=== PATIENT | female | born 1980 | race Caucasian/White ===

== ENCOUNTER 2016-06-24 19:06 | Inpatient (IN) | payer MEDICAID ==
[2016-06-24] MEDS ORDERED: IPRATROPIUM/ALBUTEROL 3 ML DEYVIAL ONE (19:25)
--- NOTE | 2016-06-24 19:36 | EDPHY ---
H & P Stated Complaint: exasperation asthma Source: Patient - Personal History LMP (Females 10-55): 22-28 Days Ago Current Tetanus/Diphtheria Vaccine: Yes Current Tetanus Diphtheria and Acellular Pertussis (TDAP): Yes - Medical/Surgical History Hx Asthma: Yes Hx Chronic Respiratory Disease: No Hx Diabetes: No Hx Cardiac Disease: No Hx Renal Disease: No Hx Cirrhosis: No Hx Alcoholism: No Hx HIV/AIDS: No Hx Splenectomy or Spleen Trauma: No Other PMH: asthma - Social History Smoking Status: Former smoker Time Seen by Provider: 06/24/16 19:21 HPI/ROS: CHIEF COMPLAINT: Cough fever HISTORY OF PRESENT ILLNESS: This is a 36-year-old female presenting to the emergency department complaining of fever for 4 days, productive cough shortness of breath x2 days. Patient reports taking Tylenol yesterday but none today, patient also complaining of nausea and decreased p.o. intake. Denies any chest pain REVIEW OF SYSTEMS: Constitutional: Fever chills, decreased p.o. intake Eyes: No discharge. ENT: sore throat. Cardiovascular: No chest pain, no palpitations. Respiratory: Productive cough, shortness of breath. Gastrointestinal: No abdominal pain. Nausea vomiting Genitourinary: No hematuria. Musculoskeletal: No back pain. Skin: No rashes. Neurological: No headache. (Ricarda Bassett) - Physical Exam Exam: General Appearance: Alert, no distress. Ill-appearing Eyes: Pupils equal and round no pallor or injection. ENT, Mouth: Mucous membranes dry Respiratory: There are no retractions. Rhonchi bilaterally, decreased breath sounds on the left side Cardiovascular: Regular rate and rhythm. Gastrointestinal: Abdomen is soft and nontender, no masses, bowel sounds normal. Neurological: No focal deficits Skin: Warm and dry, no rashes. Musculoskeletal: Neck is supple nontender. Extremities: symmetrical, full range of motion. Psychiatric: Patient is oriented X 3, anxious (Ricarda Bassett) Constitutional: Initial Vital Signs Temperature (C) 37.7 C 06/24/16 19:08 Heart Rate 108 H 06/24/16 19:08 Respiratory Rate 22 H 06/24/16 19:08 Blood Pressure 95/67 L 06/24/16 19:08 O2 Sat (%) 95 06/24/16 19:08 O2 Delivery Mode Room Air O2 (L/minute) 1 Allergies/Adverse Reactions: aspirin Allergy (Verified 06/24/16 19:11) NSAIDS (Non-Steroidal Anti-Inflamma Allergy (Verified 06/24/16 21:35) Home Medications: Medication Instructions Recorded Albuterol [Proventil Inhaler HFA 1 - 2 puffs IH Q4H PRN 06/24/16 (*)] Fexofenadine HCl [Felicia Allergy] 180 mg PO HS 06/24/16 Fluticasone Nasal [Flonase Nasal 2 sprays EACHNARE BID 06/24/16 [place] (RX)] Budesonide [Budesonide 0.5MG/2Ml 0.5 mg EACHNARE BID 06/25/16 Neb (*)] Fluticasone/Salmeterol [Advair Hfa 2 puffs IH HS 06/25/16 115-21 Mcg Inhaler] Medical Decision Making ED Course/Re-evaluation: Discussed ED plan of care: CBC, CMP, lactic acid, IV fluids, for dehydration Nori Bills, 2029: Discussed results with patient left lower lobe pneumonia. Hospital admit 2044: Spoke with Max Cintron MD accepted patient for admit. Discussed plan of care with patient (Ricarda Bassett) Differential Diagnosis: Other differential diagnosis considered not limited to pleural effusion, pneumothorax and asthma exacerbation (Ricarda Bassett) Other Provider: This patient was evaluated and managed by the nurse practitioner. I have reviewed the chart and agree with the findings and plan of care as documented. ( Manda Hagan) - Data Points Laboratory Results: Laboratory Results 06/25/16 04:12 06/25/16 04:12 Microbiology Results: MICROBIOLOGY 06/24/16 20:10 Nasal, Sinus - [place] Viral Transport Respiratory Panel ( PCR) - Final No Organism Detected Medications Given: Discontinued Medications Acetaminophen (Tylenol) 1,000 mg PO EDNOW ONE Stop: 06/24/16 19:46 Last Admin: 06/24/16 21:30 Dose: Not Given Albuterol/Ipratropium (Duoneb) 3 ml IH EDNOW ONE Stop: 06/24/16 19:50 Last Admin: 06/24/16 19:25 Dose: 3 ml Sodium Chloride (Ns) 1,000 mls @ 0 mls/hr IV ONCE ONE PRN Reason: Wide Open Stop: 06/24/16 19:49 Last Admin: 06/24/16 19:30 Dose: 1,000 mls Sodium Chloride (Ns) 500 mls @ 0 mls/hr IV ONCE ONE PRN Reason: As Directed Stop: 06/24/16 20:31 Last Admin: 06/24/16 20:00 Dose: 500 mls Levofloxacin/Dextrose (Levaquin 750 Mg (Premix)) 150 mls @ 100 mls/hr IV ONCE ONE PRN Reason: Protocol Stop: 06/24/16 22:12 Last Admin: 06/24/16 21:11 Dose: 150 mls Levofloxacin/Dextrose (Levaquin 750 Mg (Premix)) 150 mls @ 100 mls/hr IV DAILY EDWIN PRN Reason: Protocol Stop: 07/25/16 08:59 Last Admin: 06/25/16 08:24 Dose: 150 mls Sodium Chloride (Ns) 1,000 mls @ 100 mls/hr IV CONT EDWIN Stop: 12/21/16 21:14 Last Admin: 06/24/16 23:25 Dose: 1,000 mls Lorazepam (Ativan Injection) 0.5 mg IVP EDNOW ONE Stop: 06/24/16 20:31 Last Admin: 06/24/16 20:33 Dose: 0.5 mg Ondansetron HCl (Zofran) 4 mg IVP EDNOW ONE Stop: 06/24/16 19:46 Last Admin: 06/24/16 19:49 Dose: 4 mg Fluticasone/Salmeterol (Advair) 2 puffs IH HS EDWIN Stop: 12/21/16 22:59 Last Admin: 06/25/16 04:13 Dose: Not Given Departure - Departure Disposition: [facility] Acute Clinical Impression: Pneumonia Qualifiers: Pneumonia type: due to unspecified organism Laterality: left Lung location: lower lobe of lung Qualified Code(s): J18.1 - Lobar pneumonia, unspecified organism Condition: Fair
[2016-06-24] MEDS ORDERED: ONDANSETRON 4 MG/2 ML VIAL ONE (19:45)
[2016-06-24] MEDS ORDERED: ACETAMINOPHEN 500 MG TAB ONE (19:45)
[2016-06-24] MEDS ORDERED: ACETAMINOPHEN 500 MG TAB PO ONE (19:45)
[2016-06-24] MEDS ORDERED: ONDANSETRON 4 MG/2 ML VIAL IVP ONE (19:45)
[2016-06-24] MEDS ORDERED: NS 1,000 ML IV ONE (19:48)
[2016-06-24 19:49] LABS: % IMMATURE GRANULYOCYTES 0.3 % (0.0-1.1); ABSOLUTE IMMATURE GRANULOCYTES 0.03 10^3/uL (0.00-0.10); ADD DIFF? NO; ADD MORPH? NO; ADD SCAN? NO; ATYPICAL LYMPHOCYTE FLAG 30 (0-99); FRAGMENT RBC FLAG 0 (0-99); HEMATOCRIT 42.3 % (38.0-47.0); HEMOGLOBIN 14.6 g/dL (12.6-16.3); LEFT SHIFT FLG 0 (0-99); LIPEMIA HEMOLYSIS FLAG 90 (0-99); MEAN CELL HEMOGLOBIN 32.3 pg (27.9-34.1); MEAN CELL HEMOGLOBIN CONCENTR. 34.5 g/dL (32.4-36.7); MEAN CELL VOLUME 93.6 fL (81.5-99.8); MEAN PLATELET VOLUME 10.1 fL (8.7-11.7); PLATELET CLUMPS FLAG 0 (0-99); PLATELET COUNT 172 10^3/uL (150-400); RED BLOOD CELL COUNT 4.52 10^6/uL (4.18-5.33); RED CELL DISTRIBUTION WIDTH 11.7 % (11.5-15.2)
[2016-06-24] MEDS ORDERED: IPRATROPIUM/ALBUTEROL 3 ML DEYVIAL IH ONE (19:49)
[2016-06-24 20:05] LABS: ANION GAP 12 mEq/L (8-16); BILIRUBIN,TOTAL 1.1 mg/dL (0.1-1.4); CALCIUM 9.6 mg/dL (8.5-10.4); CARBON DIOXIDE 23 mEq/l (22-31); CHLORIDE 105 mEq/L (97-110); CREATININE 0.6 mg/dL (0.6-1.0); GLOMERULAR FILTRATION RATE > 60; GLUCOSE 115 mg/dL (70-100); POTASSIUM 3.4 mEq/L (3.5-5.2); SODIUM 140 mEq/L (134-144)
[2016-06-24] MEDS ORDERED: LORazepam 2 MG/ML INJ ONE (20:22)
[2016-06-24] MEDS ORDERED: LORazepam 2 MG/ML INJ IVP ONE (20:30)
[2016-06-24] MEDS ORDERED: NS 500 ML IV ONE (20:30)
[2016-06-24 20:46] LABS: LACGHOST ORDER
[2016-06-24] MEDS ORDERED: ONDANSETRON DISINTEGRATING 4 MG TAB PO PRN (21:13)
[2016-06-24] MEDS ORDERED: ACETAMINOPHEN 325 MG TAB PO PRN (21:13)
[2016-06-24] MEDS ORDERED: NS 1,000 ML IV SCH (21:15)
[2016-06-24] MEDS ORDERED: ALBUTEROL 200 PUFFS/18 GM MDI IH PRN (21:43)
--- NOTE | 2016-06-24 21:53 | GHP ---
[f rep st] HISTORY AND PHYSICAL DATE OF ADMISSION: 06/24/2016 CHIEF COMPLAINT: Fever, cough. HISTORY OF PRESENT ILLNESS: This is a 36-year-old female with history of aspirin-sensitive asthma o r Samter triad, who presents with fever and cough. It has been going on for a few days. Her son wa s sick a week ago, who has mostly recovered, associated with some nausea. She uses multiple inhaler s at home for her reactive airway disease, which have not been helping. She has been wheezing as we ll over the past few days. She has felt very weak. PAST MEDICAL/SURGICAL HISTORY: Samter triad. MEDICATIONS: Please see medication reconciliation. ALLERGIES: Amoxicillin, aspirin, Zyrtec, ibuprofen, pseudoephedrine. FAMILY HISTORY: No Samter triad. SOCIAL HISTORY: Does not drink or smoke. REVIEW OF SYSTEMS: 10-point review of systems is conducted, and is negative except per HPI. PHYSICAL EXAMINATION: VITAL SIGNS: Blood pressure is 104/62, heart rate 95, respiration rate 18, s aturating 98% on 2 L. Temperature was as high as 38.2. GENERAL: The patient is a pleasant female who appears uncomfortable, lying in bed, in no acute distress. HEENT: Normocephalic, atraumatic. CARDIOVASCULAR: Regular rate and rhythm. No murmurs, rubs, or gallops. PULMONARY: No respiratory distress. She has mild expiratory wheezes. ABDOMEN: Soft, nontender, nondistended. SKIN: No ra sh. . No Ortez. NEUROLOGIC: Alert and oriented x3. She is moving all extremities. PSYCHIATRI C: Normal mood and affect. LABS: White count is 10.9, lactate was initially 2.4 down to 1.4. Potassium is 3.4. Influenza ser ology is negative for flu. DATA: 1. I discussed this with Ricarda Bassett. Will admit to med/surg. 2. I personally viewed and interpreted her chest x-ray. It shows a small left lower lobe infiltrat e. IMPRESSION AND PLAN: This is a 36-year-old female with aspirin-sensitive asthma, who presents with mild left pneumonia. 1. Pneumonia: Will treat as community-acquired. Blood cultures have been drawn. She will get Lev aquin. She has a mild reactive airways component to this. I will give her DuoNebs for this. We wi ll not start steroids. 2. Sepsis: Due to pneumonia. She has gotten appropriate fluids in the ED. Lactate has normalized . We will continue fluids overnight. 3. Samter triad: Will continue her home inhalers. /[id number]/MODL
[2016-06-24] MEDS ORDERED: PROMETHAZINE HCL 25 MG TAB PO PRN (22:41)
[2016-06-24] MEDS ORDERED: FLUTICASONE/SALMETER 250/50MCG DISKUS IH SCH (23:00)
[2016-06-25] MEDS: IPRATROPIUM/ALBUTEROL 3 ML DEYVIAL IH SCH ×4 (04:43→22:26)
[2016-06-25 05:31] LABS: % IMMATURE GRANULYOCYTES 0.5 % (0.0-1.1); ABSOLUTE IMMATURE GRANULOCYTES 0.08 10^3/uL (0.00-0.10); ADD DIFF? NO; ADD MORPH? NO; ADD SCAN? NO; ATYPICAL LYMPHOCYTE FLAG 10 (0-99); FRAGMENT RBC FLAG 0 (0-99); HEMOGLOBIN 12.3 g/dL (12.6-16.3); LEFT SHIFT FLG 90 (0-99); LIPEMIA HEMOLYSIS FLAG 90 (0-99); MEAN CELL HEMOGLOBIN 32.8 pg (27.9-34.1); MEAN CELL HEMOGLOBIN CONCENTR. 34.2 g/dL (32.4-36.7); MEAN PLATELET VOLUME 10.2 fL (8.7-11.7); PLATELET CLUMPS FLAG 0 (0-99); PLATELET COUNT 144 10^3/uL (150-400); RED BLOOD CELL COUNT 3.75 10^6/uL (4.18-5.33); RED CELL DISTRIBUTION WIDTH 11.9 % (11.5-15.2)
[2016-06-25 05:59] LABS: ALANINE AMINOTRANSFERASE 21 IU/L (9-52); ALBUMIN 3.1 g/dL (3.5-5.0); ALKALINE PHOSPHATASE 36 IU/L (38-126); ANION GAP 11 mEq/L (8-16); ASPARTATE AMINOTRANSFERASE 17 IU/L (14-46); BILIRUBIN,TOTAL 1.7 mg/dL (0.1-1.4); CALCIUM 7.7 mg/dL (8.5-10.4); CARBON DIOXIDE 22 mEq/l (22-31); CHLORIDE 108 mEq/L (97-110); CREATININE 0.6 mg/dL (0.6-1.0); GLOMERULAR FILTRATION RATE > 60; GLUCOSE 104 mg/dL (70-100); SODIUM 141 mEq/L (134-144); TOTAL PROTEIN 5.5 g/dL (6.3-8.2)
[2016-06-25] MEDS: FLUTICASONE NASAL 120 SPRAYS/16 GM MDI EACHNARE SCH ×2 (08:39→20:25)
--- NOTE | 2016-06-25 12:06 | HOSPPROG ---
Hospitalist Progress Note Assessment/Plan: # Sepsis - WBC 14 with tachycardia - source pulmonary Blood cultures NGTD - respiratory viral PCR negative - cont empiric abx - received fluid resuscitation - follow cultures # CAP - CXR (personally reviewed and interpreted) left sided infiltrate oxygen saturations 96% on RA - cont IV levofloxacin (2/2 drug sensitivities) # RAD - h/o Sampter Triad -pt is not actively wheezy on exam - no steroids - cont inhaled meds # Allergies - cont home michael # proph - lovenox # diet - regular 3 dispo - > 2MN as requiring IV abx for sepsis and respiratory support I have discussed the case with RN - we will continue patients home Advair as her preference rather than Diskus Subjective: exhausted Objective: Vital Signs Temp Pulse Resp BP Pulse Ox 37.5 C 85 16 95/54 L 95 06/25/16 07:54 06/25/16 07:54 06/25/16 07:54 06/25/16 07:54 06/25/16 07:54 Laboratory Results 06/25/16 04:12 06/25/16 04:12 06/24/16 06/25/16 06/26/16 05:59 05:59 05:59 Intake Total 2150 Balance 2150 - Physical Exam Constitutional: appears nourished Eyes: anicteric sclera Ears, Nose, Mouth, Throat: moist mucous membranes Cardiovascular: regular rate and rhythym Respiratory: No expiratory wheeze Gastrointestinal: normoactive bowel sounds, soft, non-tender abdomen Genitourinary: no bladder fullness Skin: warm, normal color Musculoskeletal: No asymmetric calves Neurologic: AAOx3 Psychiatric: interacting appropriately, not anxious Lymph, Heme, Immunologic: no cervical LAD ICD10 Worksheet Patient Problems: Problems Problem Status Onset Pneumonia Acute
[2016-06-25] MEDS ORDERED: NON-FORMULARY NEW DRUG (Fluticasone/Salmeterol [Advair Hfa 115-21 Mcg Inhaler] 2 PUFFS) IH SCH (21:00)
[2016-06-25] MEDS ORDERED: CETIRIZINE 10 MG TAB PO SCH (21:00)
[2016-06-25] MEDS ORDERED: Fluticasone/Salmeterol [Advair Hfa 115-21 Mcg Inhaler] IH SCH (21:00)
[2016-06-25 23:26] VITALS: RESP 16; TEMP 98.2
[2016-06-26 07:51] LABS: % IMMATURE GRANULYOCYTES 0.6 % (0.0-1.1); ABSOLUTE IMMATURE GRANULOCYTES 0.07 10^3/uL (0.00-0.10); ADD DIFF? NO; ADD MORPH? NO; ADD SCAN? NO; ATYPICAL LYMPHOCYTE FLAG 0 (0-99); FRAGMENT RBC FLAG 10 (0-99); HEMOGLOBIN 12.5 g/dL (12.6-16.3); LEFT SHIFT FLG 50 (0-99); LIPEMIA HEMOLYSIS FLAG 90 (0-99); MEAN CELL HEMOGLOBIN 32.8 pg (27.9-34.1); MEAN CELL HEMOGLOBIN CONCENTR. 34.7 g/dL (32.4-36.7); MEAN CELL VOLUME 94.5 fL (81.5-99.8); MEAN PLATELET VOLUME 9.8 fL (8.7-11.7); PLATELET CLUMPS FLAG 10 (0-99); PLATELET COUNT 173 10^3/uL (150-400); RED BLOOD CELL COUNT 3.81 10^6/uL (4.18-5.33); RED CELL DISTRIBUTION WIDTH 11.9 % (11.5-15.2)
[2016-06-26 08:21] VITALS: BP 108/63; PULSE 83; O2SAT 95
[2016-06-26] MEDS: IPRATROPIUM/ALBUTEROL 3 ML DEYVIAL IH SCH ×2 (08:58→12:01)
[2016-06-26] MEDS ORDERED: FEXOFENADINE HCL 180 MG PO SCH (09:00)
--- NOTE | 2016-06-26 16:03 | GDS ---
[f rep st] DISCHARGE SUMMARY DISCHARGE DIAGNOSES: Include: 1. Sepsis secondary to pneumonia. 2. Community-acquired pneumonia. 3. Reactive airways disease. 4. Chronic allergies. HISTORY OF PRESENT ILLNESS: This is a 36-year-old female with a history of Samter's triad, presenti ng with complaints of shortness of breath and cough. For details of patient's initial presentation, please see the history and physical dated 06/24/2016. CONSULTATIVE SERVICES: None. PROCEDURES: On 06/24/2016, patient had a PA and lateral chest x-ray that showed left lower lobe inf iltrate. HOSPITAL COURSE BY ISSUE: 1. Sepsis. Patient presented with leukocytosis and tachycardia, presumed source pulmonary. Was fl uid resuscitated and placed on empiric antibiotics. The day of disposition her laboratories and vit al signs have improved. She will be discharged to complete a full course of antibiotics for pneumon ia. 2. Community-acquired pneumonia. Patient was influenza negative, as well as a respiratory panel ne gative. Blood cultures drawn at admission are no growth to date and preliminary at the time of her discharge. She is being sent on levofloxacin 750 daily to complete a 7-day course. 3. History of reactive airways. Patient was continued on her inhaled medications. She remained wi thout wheezing during her hospital stay. Oxygen saturations ranged between 91% and 95% on the day o f disposition. MEDICATIONS AT THE TIME OF DISPOSITION: Please reference med rec printed on 06/26/2016. FOLLOWUP APPOINTMENTS: For this patient include with her primary care provider in the next 2-4 week s for post-disposition followup. PENDING STUDIES: At the time of this dictation include blood cultures drawn 06/24/2016, which are p reliminary no growth to date. I spent greater than 30 minutes in the planning and coordination of this discharge. /[id number]/MODL
== END 2016-06-26 12:43 | disposition home or self-care (01) | DRG 871 ==
LOC: INTOOBSV 20:43 → F3E 22:10 → OBSVTOIN 06-25 12:12
PROVIDERS: ADMIT Student in an Organized Health Care Education/Training Program; ATTEND Hospitalist
DX: A41.9 Sepsis, unspecified organism (principal); J18.9 Pneumonia, unspecified organism; J45.909 Unspecified asthma, uncomplicated
CPT/HCPCS: 96374; G0378; J1956; J2060; J2405